=== PATIENT | male | born 1960 | race Caucasian/White ===

== ENCOUNTER 2018-08-14 18:14 | Outpatient (REF) | payer BC, SELFPAY ==
[2018-08-14 21:52] LABS: COMMENT (LAB VIEW ONLY) 180.59 mg/dL; Microalb ug/mg Crea 17.3 ug/mg Cr
== END 2018-08-14 18:34 ==
LOC: NCHCN 18:14
PROVIDERS: PCP Family Medicine; Visit Provider Family Medicine
DX: E11.319 Type 2 diabetes mellitus with unspecified diabetic retinopathy without macular edema (principal)
CPT/HCPCS: 82043; 82570

== ENCOUNTER 2018-10-09 16:57 | Outpatient (REF) | payer BC, SELFPAY ==
[2018-10-09 21:50] LABS: Abs Immature Grans 0.01 k/cumm (0.0-0.09); Absolute Basophil Count 0.05 k/cumm (0.0-0.2); Absolute Eosinophil Count 0.26 k/cumm (0.0-0.7); Absolute Lymphocyte Count 1.27 k/cumm (1.2-3.4); Absolute Monocyte Count 0.64 k/cumm (0.11-0.7); Absolute Neutrophil Count 4.18 k/cumm (1.2-6.7); Basophils % 0.8; Eosinophils % 4.1; HCT 41.3 % (40.0-50.0); HGB 13.6 g/dL (13.5-17.5); Immature Grans % 0.2; Lymphocytes % 19.8; Mean Corp. HGB Concentration 32.9 g/dL (32.0-36.0); Mean Corpuscular Hemoglobin 27.5 pg (27.0-33.0); Mean Corpuscular Volume 83.6 fL (80-95); Mean Platelet Volume 10.9 fL (8.0-11.0); Neutrophils % 65.1; Platelet Count 349 x1000/uL (130-400); RBC 4.94 m/cumm (4.50-6.00); White Blood Cell Count 6.41 k/cumm (4.4-10.8)
[2018-10-09 22:12] LABS: C-Reactive Protein 0.21 mg/dL (0.0-0.3)
[2018-10-09 23:19] LABS: ESR 12 MM/HR (1-20)
== END 2018-10-09 17:17 ==
LOC: NCHCN 16:57
PROVIDERS: PCP Family Medicine; Visit Provider Family Medicine
DX: R22.40 Localized swelling, mass and lump, unspecified lower limb (principal)
CPT/HCPCS: 85652; 85025; 86140

== ENCOUNTER 2019-02-05 11:10 | Outpatient (REF) | payer BC, SELFPAY ==
[2019-02-05 22:25] LABS: ALT 34 U/L (12-78); AST 17 U/L (15-37); Albumin 3.6 g/dL (3.4-5.0); Alkaline Phosphatase 61 U/L (46-116); Anion Gap 11.1 mmol/L (3-11); BUN 20 mg/dL (7-18); Bilirubin, Total 0.3 mg/dL (0.2-1.0); CO2 26.9 mmol/L (21.0-32.0); CREATININE 1.15 mg/dL (0.70-1.30); Chloride 105 mmol/L (98-107); Cholesterol 175 mg/dL (50-200); Glucose 145 mg/dL (70-100); HDL Cholesterol 41 mg/dL (40-60); LDL CHOLESTEROL 105 mg/dL (<100); Potassium 4.5 mmol/L (3.5-5.1); Sodium 143 mmol/L (136-145); Triglyceride 162 mg/dL (30-150)
[2019-02-05 22:43] LABS: Hemoglobin A1C 7.9 % (4.5-6.2)
== END 2019-02-05 11:30 ==
LOC: NCHCN 11:10
PROVIDERS: PCP Family Medicine; Visit Provider Family Medicine
DX: E11.319 Type 2 diabetes mellitus with unspecified diabetic retinopathy without macular edema (principal)
CPT/HCPCS: 80053; 80061; 83721; 83036

== ENCOUNTER 2019-08-20 20:35 | Outpatient (REF) | payer BC, SELFPAY ==
[2019-08-20 23:09] LABS: COMMENT (LAB VIEW ONLY) 52.13 mg/dL; Microalb ug/mg Crea 12.7 ug/mg Cr
== END 2019-08-20 20:55 ==
LOC: NCHCN 20:35
PROVIDERS: PCP Family Medicine; Visit Provider Family Medicine
DX: E11.9 Type 2 diabetes mellitus without complications (principal)
CPT/HCPCS: 82043; 82570

== ENCOUNTER 2020-04-08 09:51 | Outpatient (REF) | payer BC, SELFPAY ==
[2020-04-08 19:41] LABS: Anion Gap 11.1 mmol/L (3-11); BUN 18 mg/dL (7-18); CO2 23.9 mmol/L (21.0-32.0); CREATININE 1.27 mg/dL (0.70-1.30); Calcium 8.8 mg/dL (8.5-10.1); Chloride 104 mmol/L (98-107); Estimated GFR 58.25 (mL/min/1.73m2); Glucose 181 mg/dL (74-106); Potassium 4.4 mmol/L (3.5-5.1); Sodium 139 mmol/L (136-145)
== END 2020-04-08 10:11 ==
LOC: NCHCN 09:51
PROVIDERS: PCP Nurse Practitioner Family; Visit Provider Nurse Practitioner Family
DX: Z01.818 Encounter for other preprocedural examination (principal)
CPT/HCPCS: 80048

== ENCOUNTER 2020-07-24 08:15 | Outpatient (REF) | payer BC, SELFPAY ==
[2020-07-24 21:46] LABS: Hemoglobin A1C 6.9 % (<5.7)
[2020-07-24 22:07] LABS: ALT 34 U/L (16-63); AST 16 U/L (15-37); Alkaline Phosphatase 69 U/L (46-116); Anion Gap 4.6 mmol/L (3-11); BUN 21 mg/dL (7-18); Bilirubin, Total 0.5 mg/dL (0.2-1.0); CO2 29.4 mmol/L (21.0-32.0); CREATININE 1.25 mg/dL (0.70-1.30); Calcium 8.7 mg/dL (8.5-10.1); Calculated LDL 106 mg/dL (<100); Chloride 107 mmol/L (98-107); Cholesterol 177 mg/dL (<200); Estimated GFR 59.32 (mL/min/1.73m2); Glucose 135 mg/dL (74-106); HDL Cholesterol 43 mg/dL (40-60); Potassium 4.6 mmol/L (3.5-5.1); Sodium 141 mmol/L (136-145); Total Protein 7.4 g/dL (6.4-8.2); Triglyceride 141 mg/dL (<150)
== END 2020-07-24 08:35 ==
LOC: NCHCN 08:15
PROVIDERS: PCP Nurse Practitioner Family; Visit Provider Family Medicine
DX: Z00.00 Encounter for general adult medical examination without abnormal findings (principal); E11.319 Type 2 diabetes mellitus with unspecified diabetic retinopathy without macular edema; E78.1 Pure hyperglyceridemia; E78.6 Lipoprotein deficiency; I10 Essential (primary) hypertension
CPT/HCPCS: 80053; 80061; 83036

== ENCOUNTER 2020-07-31 22:38 | Outpatient (REF) | payer BC, SELFPAY ==
[2020-07-31 23:02] LABS: Microalb ug/mg Crea 6.4 ug/mg Cr
== END 2020-07-31 22:58 ==
LOC: NCHCN 22:38
PROVIDERS: PCP Nurse Practitioner Family; Visit Provider Family Medicine
DX: E11.319 Type 2 diabetes mellitus with unspecified diabetic retinopathy without macular edema (principal)
CPT/HCPCS: 82043; 82570

== ENCOUNTER 2021-08-02 08:54 | Outpatient (REF) | payer BC, SELFPAY ==
[2021-08-02 18:09] LABS: COMMENT (LAB VIEW ONLY) 102.64 mg/dL; Microalb ug/mg Crea 8.4 ug/mg Cr
[2021-08-02 18:10] LABS: ALT 39 U/L (16-63); AST 19 U/L (15-37); Albumin 3.8 g/dL (3.4-5.0); Alkaline Phosphatase 64 U/L (46-116); Anion Gap 9.4 mmol/L (3-11); BUN 22 mg/dL (7-18); Bilirubin, Total 0.5 mg/dL (0.2-1.0); CO2 28.6 mmol/L (21.0-32.0); CREATININE 1.4 mg/dL (0.70-1.30); Calcium 8.8 mg/dL (8.5-10.1); Calculated LDL 95 mg/dL (<100); Chloride 105 mmol/L (98-107); Cholesterol 172 mg/dL (<200); Estimated GFR 51.87 (mL/min/1.73m2); Glucose 147 mg/dL (74-106); HDL Cholesterol 45 mg/dL (40-60); Potassium 4.2 mmol/L (3.5-5.1); Sodium 143 mmol/L (136-145); Triglyceride 164 mg/dL (<150)
[2021-08-02 19:15] LABS: Hemoglobin A1C 7.4 % (<5.7)
== END 2021-08-02 08:55 | disposition home or self-care (01) ==
LOC: NCHCN 08:54
PROVIDERS: PCP Nurse Practitioner Family; Visit Provider Family Medicine
DX: I10 Essential (primary) hypertension (principal); E78.1 Pure hyperglyceridemia; E11.319 Type 2 diabetes mellitus with unspecified diabetic retinopathy without macular edema; Z00.00 Encounter for general adult medical examination without abnormal findings
CPT/HCPCS: 80053; 80061; 82043; 82570; 83036

== ENCOUNTER 2022-05-27 19:44 | Outpatient (REF) | payer BC, SELFPAY ==
[2022-05-27 15:29] LABS: ALT 28 U/L (16-63); AST 25 U/L (15-37); Albumin 3.6 g/dL (3.4-5.0); Alkaline Phosphatase 50 U/L (46-116); Anion Gap 11.9 mmol/L (3-11); BUN 24 mg/dL (7-18); Bilirubin, Total 0.3 mg/dL (0.2-1.0); CO2 24.1 mmol/L (21.0-32.0); CREATININE 1.2 mg/dL (0.70-1.30); Calcium 8.9 mg/dL (8.5-10.1); Calculated LDL 68 mg/dL (<100); Chloride 103 mmol/L (98-107); Cholesterol 134 mg/dL (<200); Estimated GFR 69.23 (mL/min/1.73m2); Glucose 200 mg/dL (74-106); HDL Cholesterol 42 mg/dL (40-60); Potassium 3.9 mmol/L (3.5-5.1); Sodium 139 mmol/L (136-145); Total Protein 7.2 g/dL (6.4-8.2); Triglyceride 122 mg/dL (<150)
[2022-05-28 22:39] LABS: Albumin ug/mg Crea 11 (<30); Albumin, Ur 0.9 mg/dL (See Note); Creatinine, Ur 83.9 mg/dL (See Note)
== END 2022-05-27 19:45 | disposition home or self-care (01) ==
LOC: NCHCN 19:44
PROVIDERS: PCP Nurse Practitioner Family; Visit Provider Family Medicine
DX: E11.319 Type 2 diabetes mellitus with unspecified diabetic retinopathy without macular edema (principal); I10 Essential (primary) hypertension; E78.1 Pure hyperglyceridemia
CPT/HCPCS: 80053; 80061; 82043; 82570

== ENCOUNTER 2023-01-13 13:44 | Outpatient (REF) | payer BC, SELFPAY ==
[2023-01-13 21:48] LABS: Anion Gap 9.2 mmol/L (3-11); BUN 25 mg/dL (7-18); CO2 27.8 mmol/L (21.0-32.0); CREATININE 1.5 mg/dL (0.70-1.30); Chloride 103 mmol/L (98-107); Estimated GFR 52.97 (mL/min/1.73m2); Glucose 222 mg/dL (74-106); Sodium 140 mmol/L (136-145)
== END 2023-01-13 13:45 | disposition home or self-care (01) ==
LOC: NCHCN 13:44
PROVIDERS: PCP Nurse Practitioner Family; Visit Provider Family Medicine
DX: I10 Essential (primary) hypertension (principal)
CPT/HCPCS: 80048

== ENCOUNTER 2023-02-17 20:08 | Outpatient (REF) | payer BC, SELFPAY ==
[2023-02-17 16:37] LABS: Anion Gap 9.3 mmol/L (3-11); BUN 24 mg/dL (7-18); CO2 25.7 mmol/L (21.0-32.0); CREATININE 1.4 mg/dL (0.70-1.30); Calcium 9.2 mg/dL (8.5-10.1); Chloride 103 mmol/L (98-107); Estimated GFR 57.54 (mL/min/1.73m2); Glucose 194 mg/dL (74-106); Potassium 3.8 mmol/L (3.5-5.1); Sodium 138 mmol/L (136-145)
== END 2023-02-17 20:09 | disposition home or self-care (01) ==
LOC: NCHCN 20:08
PROVIDERS: PCP Nurse Practitioner Family; Visit Provider Family Medicine
DX: I10 Essential (primary) hypertension (principal)
CPT/HCPCS: 80048

== ENCOUNTER 2023-06-30 18:16 | Outpatient (REF) | payer BC, SELFPAY ==
[2023-06-30 15:30] LABS: Hemoglobin A1C 6.4 % (<5.7)
[2023-06-30 15:56] LABS: ALT 23 U/L (16-63); AST 16 U/L (15-37); Albumin 3.7 g/dL (3.4-5.0); Alkaline Phosphatase 50 U/L (46-116); Anion Gap 8.4 mmol/L (3-11); BUN 16 mg/dL (7-18); Bilirubin, Total 0.4 mg/dL (0.2-1.0); CO2 26.6 mmol/L (21.0-32.0); CREATININE 1.2 mg/dL (0.70-1.30); Calcium 9.1 mg/dL (8.5-10.1); Calculated LDL 69 mg/dL (<100); Chloride 104 mmol/L (98-107); Cholesterol 150 mg/dL (<200); Glucose 118 mg/dL (74-106); HDL Cholesterol 50 mg/dL (40-60); Potassium 4.1 mmol/L (3.5-5.1); Sodium 139 mmol/L (136-145); Total Protein 7.5 g/dL (6.4-8.2); Triglyceride 155 mg/dL (<150)
== END 2023-06-30 18:17 | disposition home or self-care (01) ==
LOC: NCHCN 18:16
PROVIDERS: PCP Nurse Practitioner Family; Visit Provider Family Medicine
DX: I10 Essential (primary) hypertension (principal); E11.319 Type 2 diabetes mellitus with unspecified diabetic retinopathy without macular edema; E78.6 Lipoprotein deficiency; E66.3 Overweight
CPT/HCPCS: 80053; 80061; 83036

== ENCOUNTER 2023-07-07 21:40 | Outpatient (REF) | payer BC, SELFPAY ==
[2023-07-07 22:14] LABS: COMMENT (LAB VIEW ONLY) 123.22 mg/dL; Microalb ug/mg Crea 5.2 ug/mg Cr
== END 2023-07-07 21:41 | disposition home or self-care (01) ==
LOC: NCHCN 21:40
PROVIDERS: PCP Nurse Practitioner Family; Visit Provider Family Medicine
DX: E11.319 Type 2 diabetes mellitus with unspecified diabetic retinopathy without macular edema (principal)
CPT/HCPCS: 82043; 82570

== ENCOUNTER 2023-12-01 12:44 | Outpatient (REF) | payer BC, SELFPAY ==
[2023-12-01 14:22] LABS: HCT 43.8 % (40.0-50.0); HGB 14.4 g/dL (13.5-17.5); MCH 28.8 pg (27.0-33.0); MCHC 32.9 % (32.0-36.0); MCV 88 fL (80-95); MPV 10.3 fL (8.0-11.0); Platelet Count 260 10^3/uL (130-400); RDW 12.5 % (11.8-14.1); WBC 6.88 10^3/uL (4.4-10.8)
[2023-12-01 14:49] LABS: Anion Gap 12.2 mmol/L (3-11); BUN 25 mg/dL (7-18); CO2 23.8 mmol/L (21.0-32.0); Chloride 105 mmol/L (98-107); Estimated GFR 85.63 (mL/min/1.73m2); Glucose 107 mg/dL (74-106); Magnesium 1.8 mg/dL (1.8-2.4); Sodium 141 mmol/L (136-145); TSH (W/Ref FT4) 1.94 uIU/mL (0.36-3.74)
== END 2023-12-01 12:45 | disposition home or self-care (01) ==
LOC: NCHCN 12:44
PROVIDERS: PCP Nurse Practitioner Family; Referring Provider Family Medicine; Visit Provider Family Medicine
DX: R00.2 Palpitations (principal); F41.8 Other specified anxiety disorders
CPT/HCPCS: 80048; 85027; 83735; 84443

== ENCOUNTER 2024-08-02 08:25 | Outpatient (REF) | payer BC, SELFPAY ==
[2024-08-02 14:27] LABS: ALT 25 U/L (16-63); AST 17 U/L (15-37); Alkaline Phosphatase 55 U/L (46-116); Anion Gap 8.9 mmol/L (3-11); BUN 22 mg/dL (7-18); Bilirubin, Total 0.37 mg/dL (0.2-1.0); CO2 28.1 mmol/L (21.0-32.0); CREATININE 1.2 mg/dL (0.70-1.30); Calcium 9.1 mg/dL (8.5-10.1); Calculated LDL 84 mg/dL (<100); Chloride 109 mmol/L (98-107); Cholesterol 162 mg/dL (<200); Estimated GFR 68.38 (mL/min/1.73m2); Glucose 137 mg/dL (74-106); HDL Cholesterol 57 mg/dL (40-60); Potassium 4.4 mmol/L (3.5-5.1); Sodium 146 mmol/L (136-145); Total Protein 7.7 g/dL (6.4-8.2); Triglyceride 105 mg/dL (<150)
[2024-08-02 14:36] LABS: Hemoglobin A1C 6.4 % (<5.7)
[2024-08-02 22:47] LABS: PSA, Screening 0.9 ng/mL (<=4.5)
== END 2024-08-02 08:26 | disposition home or self-care (01) ==
LOC: NCHCN 08:25
PROVIDERS: PCP Nurse Practitioner Family; Visit Provider Family Medicine
DX: R00.2 Palpitations (principal); F41.9 Anxiety disorder, unspecified
CPT/HCPCS: 80053; 80061; 84153; 83036

== ENCOUNTER 2024-08-14 15:37 | Outpatient (REF) | payer BC, SELFPAY ==
[2024-08-14 15:52] LABS: COMMENT (LAB VIEW ONLY) 92.15 mg/dL; Microalb ug/mg Crea 69.1 ug/mg Cr
== END 2024-08-14 15:38 | disposition home or self-care (01) ==
LOC: NCHCN 15:37
PROVIDERS: PCP Nurse Practitioner Family; Visit Provider Family Medicine
DX: E11.9 Type 2 diabetes mellitus without complications (principal)
CPT/HCPCS: 82043; 82570

== ENCOUNTER 2024-10-18 09:51 | Outpatient (REF) | payer BC, SELFPAY ==
[2024-10-18 15:11] LABS: ALT 28 U/L (16-63); AST 25 U/L (15-37); Albumin 3.9 g/dL (3.4-5.0); Alkaline Phosphatase 60 U/L (46-116); Anion Gap 8.5 mmol/L (3-11); BUN 21 mg/dL (7-18); Bilirubin, Total 0.37 mg/dL (0.2-1.0); CO2 26.5 mmol/L (21.0-32.0); CREATININE 1.2 mg/dL (0.70-1.30); Calcium 9.3 mg/dL (8.5-10.1); Calculated LDL 67 mg/dL (<100); Chloride 109 mmol/L (98-107); Cholesterol 139 mg/dL (<200); Estimated GFR 68.38 (mL/min/1.73m2); Glucose 124 mg/dL (74-106); HDL Cholesterol 53 mg/dL (40-60); Potassium 4.5 mmol/L (3.5-5.1); Sodium 144 mmol/L (136-145); Total Protein 7.3 g/dL (6.4-8.2); Triglyceride 99 mg/dL (<150)
== END 2024-10-18 09:52 | disposition home or self-care (01) ==
LOC: NCHCN 09:51
PROVIDERS: PCP Nurse Practitioner Family; Visit Provider Family Medicine
DX: E78.5 Hyperlipidemia, unspecified (principal)
CPT/HCPCS: 80053; 80061

== ENCOUNTER 2025-07-15 13:16 | Outpatient (REF) | payer BC, SELFPAY ==
[2025-07-15 21:07] LABS: COMMENT (LAB VIEW ONLY) 124.04 mg/dL; Microalb ug/mg Crea 4.1 ug/mg Cr
== END 2025-07-15 13:17 | disposition home or self-care (01) ==
LOC: NCHCN 13:16
PROVIDERS: PCP Nurse Practitioner Family; Visit Provider Family Medicine
DX: E11.9 Type 2 diabetes mellitus without complications (principal)
CPT/HCPCS: 82043; 82570